=== PATIENT | male | born 2000 | race Caucasian/White ===

== ENCOUNTER 2024-07-16 13:10 | Emergency (ER) | payer BC, SELFPAY ==
--- NOTE | ~2024-07-16 | XR_ITS ---
EXAMINATION: XR chest 2V Exam Date/Time: 07/16/2024 13:50 [employer] HISTORY: left sided chest pain Comparison: 10/18/2012. RESULT: Lines, tubes, and devices: None. Lungs and pleura: Clear. Cardiomediastinal silhouette: Stable. Other: No acute osseous or upper abdominal finding. IMPRESSION: No acute cardiopulmonary process. Reviewed, dictated and finalized at location K. [employer]
[2024-07-16 13:18] VITALS: BP 124/84; PULSE 96; RESP 20; TEMP 36.4; O2SAT 99
--- NOTE | 2024-07-16 13:54 | ECG_ITS ---
Test Date: 2024-07-16 14:08:26 Measurements Intervals [place] Rate: 69 P: 5 GA: 136 QRS: 28 QRSD: 92 T: 44 QT: 382 QTc: 412 Interpretive Statements SINUS RHYTHM INCOMPLETE RIGHT BUNDLE BRANCH BLOCK BORDERLINE ECG No previous ECG available for comparison Electronically Signed On 07-17-2024 08:10:00 [employer] by Jax Rajput D.O.
--- NOTE | 2024-07-16 13:55 | ED.GENADULT ---
HPI - General Adult General Chief complaint: Upper Respiratory Infection Stated complaint: pain in back when breathing Source: patient Mode of arrival: ambulatory Limitations: no limitations History of Present Illness HPI narrative: Patient presents for evaluation of left-sided chest pain. Symptom onset 1 month ago. Pain is intermittent occurring every other day. Pain lasts approximately one hour. Certain positions make his symptoms worse, as does deep inspiration. He cannot identify any thing out of changing positions that alleviates his pain. Pain is sharp, throbbing and 7/10 in severity. He has not tried any medications to assist with the symptoms. He does vape. No familial history of coronary artery disease to his knowledge. He feels that he cannot catch a deep breath. Related Data Allergies Allergy/AdvReac Type Severity Reaction Status Date / Time No Known Allergies Allergy Unverified 06/19/17 16:57 Review of Systems Review of Systems: CONSTITUTIONAL: Denies fever, chills, or sweats. EYES: Denies visual changes, redness, or discharge. ENT: Denies rhinorrhea, congestion, sore throat, or otalgia. CARDIOVASCULAR: Reports left sided chest pain. Denies palpitations, or edema. RESPIRATORY: Reports cough and sensation that he cannot catch a deep breath GASTROINTESTINAL: Denies abdominal pain, nausea, vomiting, or diarrhea. GENITOURINARY: Denies dysuria or hematuria. SKIN: Denies rash or itching. MUSCULOSKELETAL: Denies back pain, joint pain, or myalgia. NEUROLOGIC: Denies headache, numbness, dizziness, or weakness. PSYCHIATRIC: Denies anxiety or depression. [facility] Past Medical History Medical History (Updated 07/16/24 @ 14:20 by OSKAR Ferrari, ) Anxiety Surgical History Surgical History (Updated 07/16/24 @ 14:03 by OSKAR Ferrari, ) No pertinent past surgical history Family History Family History Mother Family history non-contributory Social History Social History Smoking status: Current every day smoker Tobacco type: e-cigarettes/vaping Living arrangements: with family Gender identity (if verbalized by the patient): Male Sexual Orientation (if Verbalized by the Patient): Straight or Heterosexual Exam Narrative: GENERAL: Well-appearing, well-nourished, and in no acute distress. HEAD: Normocephalic, atraumatic. EYES: PERRLA and EOMI. ENT: Nares clear, no rhinorrhea or epistaxis. Mucous membranes moist. Oropharynx without tonsillar hypertrophy exudate or other lesions. Bilateral TMs pearly kenyon nonbulging NECK: Supple. No adenopathy or masses. No carotid bruits or JVD CHEST: Clear to auscultation. No respiratory distress. No wheezes rales or rhonchi HEART: Regular rate and rhythm. No murmur heard. Normal peripheral pulses. ABDOMEN: Soft, nontender, nondistended, normal active bowel sounds. EXTREMITIES: Normal range of motion. No edema. SKIN: Warm, dry, no rash. NEURO: No focal deficits. Alert and oriented x3. PSYCH: Normal mood and affect. Course Course Emergency Course: This is a 23-year-old male who presented for evaluation of left-sided chest pain. EKG and chest x-ray were normal. I did offer to discharge him with some steroids as his pain seems to be pleuritic chest pain. He declined. He will take ibuprofen. He is advised not to smoke/vape. Follow-up with primary provider. Go to the ER for worsening symptoms. Patient in agreement with plan of care. Level of Care: Express Care Visit Vital Signs Vital signs: Vital Signs Temperature 36.4 C L 07/16/24 13:18 Pulse Rate 96 07/16/24 13:18 Respiratory Rate 20 07/16/24 13:18 Blood Pressure 124/84 07/16/24 13:18 Pulse Oximetry 99 07/16/24 13:18 Oxygen Delivery Room Air 07/16/24 13:18 Temperature 36.4 C L 07/16/24 13:18 Pulse Rate 96 07/16/24 13:18 Respiratory Rate 20 07/16/24 13:18 Blood Pressure 124/84 07/16/24 13:18 Pulse Oximetry 99 07/16/24 13:18 Oxygen Delivery Room Air 07/16/24 13:18 Medical Decision Making Vital Signs Vital Signs: Vital Signs Temperature 36.4 C L 07/16/24 13:18 Pulse Rate 96 07/16/24 13:18 Respiratory Rate 20 07/16/24 13:18 Blood Pressure 124/84 07/16/24 13:18 Pulse Oximetry 99 07/16/24 13:18 Oxygen Delivery Room Air 07/16/24 13:18 Temperature 36.4 C L 07/16/24 13:18 Pulse Rate 96 07/16/24 13:18 Respiratory Rate 20 07/16/24 13:18 Blood Pressure 124/84 07/16/24 13:18 Pulse Oximetry 99 07/16/24 13:18 Oxygen Delivery Room Air 07/16/24 13:18 Imaging Data Radiologist's impression: EXAMINATION: XR chest 2V Exam Date/Time: 07/16/2024 13:50 [employer] HISTORY: left sided chest pain Comparison: 10/18/2012. RESULT: Lines, tubes, and devices: None. Lungs and pleura: Clear. Cardiomediastinal silhouette: Stable. Other: No acute osseous or upper abdominal finding. IMPRESSION: No acute cardiopulmonary process. ECG Data EKG #1: ECG completion date: 07/16/24 ECG completion time: 14:08 Interpretation: Normal sinus rhythm, rate 69, normal axis and intervals Discharge Plan Discharge Clinical Impression: Pleuritic chest pain Patient Disposition: Home, Self-Care Condition: Stable Instructions: Antibiotic Form, Chest Pain (ED), How to Stop Smoking (ED) Patient Language: Iranian Follow-up/Referrals: Amber Cai DO [Physician] - Time of Disposition: 14:20
== END 2024-07-16 14:26 | disposition home or self-care (01) ==
PROVIDERS: Emergency Provider Nurse Practitioner
DX: R07.81 Pleurodynia (principal); F17.290 Nicotine dependence, other tobacco product, uncomplicated
CPT/HCPCS: 71046; 93005; 99213; G0463